=== PATIENT | female | born 1975 | race Caucasian/White ===

== ENCOUNTER → 2021-10-21 14:22 | Outpatient (CLI) | payer BC, SELFPAY ==
--- NOTE | ~2021-10-21 | XR_ITS ---
XR sacrum coccyx min 2V DATE: 10/21/2021 14:39 INDICATION: Sacral and coccygeal pain following injury from fall TECHNIQUE: AP, angled AP and lateral views COMPARISON: None FINDINGS: No fracture or bone destruction of the sacrum or coccyx. Normal alignment at the sacroiliac joints and pubic symphysis. IMPRESSION: Negative Reviewed, dictated and finalized at location A. T ASSIGNER IMPRESSION: Negative
== END ==
PROVIDERS: PCP Hospitalist; Visit Provider Chiropractor
DX: M53.3 Sacrococcygeal disorders, not elsewhere classified (principal)
CPT/HCPCS: 72220

== ENCOUNTER 2025-04-03 09:16 | Outpatient (CLI) | payer BC, SELFPAY ==
--- NOTE | ~2025-04-03 | MR_ITS ---
EXAMINATION: MR knee LT wo con DATE: 04/03/2025 09:52 INDICATION: chronic lt knee pain TECHNIQUE: Magnetic resonance imaging (MRI) of the left knee was performed without intravenous contra st. Sequences included axial PD-weighted FS FSE, coronal PD-weighted FSE and PD-weighted FS FSE, sagi ttal PD-weighted FSE, and sagittal T2-weighted FS FSE. COMPARISON: None. FINDINGS: Medial compartment: Meniscus intact. Mild diffuse cartilage thinning. Mild osteophytosis. Lateral compartment: Meniscus intact. Mild diffuse cartilage thinning. Mild osteophytosis. Patellofemoral compartment: Mild cartilage thinning over the median ridge with minimal fissuring. Retinacula intact. Multifocal a reas of partial-thickness cartilage signal abnormality Ligaments and tendons: The ACL, PCL, MCL, and LCL are intact. Mild thickening of the IT band, with mild hyperintense signal deep to its fibers. Focal fluid surrounding the semitendinosus tendon. The remaining flexor and exten sor tendons are within normal limits. Fluid: Small volume joint fluid in the knee. Mims's cyst. Osseous/other: No suspicious focal or diffuse marrow signal. IMPRESSION: No internal derangement. Tricompartmental osteoarthritis. Minimal semitendinosus tenosynovitis. Thickening of the IT band with abnormal adjacent inflammatory/fluid signal, as can be seen with IT ba nd syndrome. Mims's cyst. Reviewed, dictated and finalized at location K. IMPRESSION: No internal derangement. Tricompartmental osteoarthritis. Minimal semitendinosus tenosynovitis. Thickening of the IT band with abnormal adjacent inflammatory/fluid signal, as can be seen with IT band syndrome. Mims's cyst.
== END 2025-04-03 09:17 | disposition home or self-care (01) ==
LOC: MICIMG 09:17
PROVIDERS: PCP Orthopaedic Surgery; Visit Provider Orthopaedic Surgery
DX: M25.562 Pain in left knee (principal); G89.29 Other chronic pain
CPT/HCPCS: 73721